=== PATIENT | male | born 1985 | race American Indian/Alaskan Native ===

== ENCOUNTER 2019-10-02 10:18 | Emergency (ER) | payer SELFPAY ==
[2019-10-02 10:27] VITALS: BP 154/109
--- NOTE | 2019-10-02 11:16 | Emergency Department Report ---
Chief Complaint: Chest Pain Stated Complaint: CHEST DISCOMFORT Time Seen by Provider: 10/02/19 11:11 - HPI History of Present Illness: 34-year-old -[place] male in no acute distress nontoxic in appearance presents to the emergency room reporting a two-week history of chest discomfort on the left side. Patient states he only notices pain when he moves his left arm in a certain position. Patient reports that he has been laying on his left side more than usual. Patient reports he is tried taking aspirin with no relief. Patient denies any shortness of breath no nausea no vomiting no blurred vision. No leg swelling no abdominal pain. Patient reports he has a past medical history of depression and anxiety. Patient reports he is not on any medications for that as he is followed by [facility] and has not resumed therapy. Patient has no thoughts of suicidal homicidal. - Exam Vital Signs: Vital Signs 10/02/19 10:23 Temperature 99.4 F Pulse Rate 92 H Respiratory 16 Rate Blood Pressure 154/109 O2 Sat by Pulse 100 Oximetry Physical Exam: Gen: alert oriented NAD Cardic: regular rate and rhythm no murmurs appreciated Resp: Clear to auscultation bilateral no wheezing no rales or rhonchi. Superior left side chest tenderness. Abdomen: Soft nontender nondistended normal bowel sounds. Patient is ambulatory without difficulties no signs of distress with walking. MSE screening note: Focused history and physical exam performed. Due to findings the following was ordered: 34-year-old -[place] male in no acute distress nontoxic in appearance presents to the emergency room reporting a two-week history of chest discomfort on the left side. Patient states he only notices pain when he moves his left arm in a certain position. Patient reports that he has been laying on his left side more than usual. Patient reports he is tried taking aspirin with no relief. Patient denies any shortness of breath no nausea no vomiting no blurred vision. No leg swelling no abdominal pain. Patient reports he has a past medical history of depression and anxiety. Patient reports he is not on any medications for that as he is followed by [facility] and has not resumed therapy. Patient has no thoughts of suicidal homicidal. I discussed with patient that his pain is reproducible EKG is negative he has no respiratory discomfort lungs are clear. Discussed with patient this is most likely a muscle strain and that ibuprofen or or Aleve will benefit. I recommend patient to follow-up with her primary care provider. ED Medical Decision Making - EKG Data EKG shows normal: sinus rhythm Rate: normal ED Disposition for MSE Clinical Impression: Acute costochondritis Disposition: MED SCREENING EXAM-LEFT Is pt being admited?: No Does the pt Need Aspirin: No Condition: Stable Instructions: Costochondritis (ED) Additional Instructions: Try taking ibuprofen or Aleve for pain management you can rub Aspercreme to your left chest. I recommend for you to increase your fluid intake. Follow-up with your therapist and follow-up with your primary care provider. Referrals: ELIAS KELLER MD [Primary Care Provider] - 3-5 Days JASON SAMANO MD [Staff Physician] - 3-5 Days
== END 2019-10-02 11:30 | disposition left against medical advice (07) ==
LOC: ED 10:18
DX: M94.0 Chondrocostal junction syndrome [Tietze] (principal)
CPT/HCPCS: 93005; 99282